=== PATIENT | male | born 1940 | race Caucasian/White ===

== ENCOUNTER 2018-01-31 11:39 | Outpatient (CLI) | payer MEDICARE, BC ==
[2018-01-31 13:12] LABS: #Eosinphils 0.1 thou/uL (0.0-0.7); #Lymphocytes 1.8 thou/uL (1.20-3.40); #Monocytes 0.5 thou/uL (0.11-0.59); #Neutrophils 3.8 thou/uL (1.40-6.50); %Basophils 0.4 % (0.0-1.0); %Eosinophils 1.9 % (0.0-10.0); %Lymphocytes 28.5 % (21.0-51.0); %Monocytes 8.7 % (0.0-10.0); %Neutrophils 60.6 % (42.0-75.0); Hemoglobin 11.8 g/dL (14.0-18.0); Mean Corpuscular HGB CONC 34.7 g/dL (32.0-36.0); Mean Corpuscular Hemoglobin 35.3 pg (27.0-31.0); Mean Platelet Volume 9.5 fL (7.4-10.4); Platelet Count 177 thou/uL (130-400); RBC Distribution Width 17.1 % (11.5-14.5); Red Blood Cell (RBC) Count 3.33 mill/uL (4.70-6.10); White Blood Cell (WBC) Count 6.3 thou/uL (4.8-10.8)
[2018-01-31 13:45] LABS: Anion Gap 12 mmol/L (10-20); BUN (Urea Nitrogen) 17 mg/dL (8.4-25.7); Calc. Creatinine Clearance 0 mL/min (70-130); Calcium 9.5 mg/dL (7.8-10.44); Carbon Dioxide 26 mmol/L (23-31); Chloride 106 mmol/L (98-107); Estimated GFR-MDRD 83; Glucose 160 mg/dL (83-110); Potassium 4.4 mmol/L (3.5-5.1); Sodium 140 mmol/L (136-145)
--- NOTE | 2018-01-31 13:59 | RAD ---
2 VIEWS CHEST: Date: 01/31/18 COMPARISON: None. HISTORY: Preoperative radiograph. FINDINGS: Two views of the chest show normal sized cardiomediastinal silhouette. There is no evidence of consol idation, mass, or pleural effusion. Degenerative changes are seen in the spine. IMPRESSION: No evidence of acute cardiopulmonary disease. POS: [facility]
== END 2018-01-31 11:40 | disposition home or self-care (01) ==
LOC: LABBT 11:39
PROVIDERS: ATTEND Orthopaedic Surgery Hand Surgery
DX: Z01.818 Encounter for other preprocedural examination (principal); G56.01 Carpal tunnel syndrome, right upper limb
CPT/HCPCS: 71046; 80048; 85025

== ENCOUNTER 2018-02-02 14:18 | Day surgery (SDC) | payer MEDICARE, BC ==
[2018-01-31 12:09] VITALS: BMI 28.2
[2018-02-02] MEDS ORDERED: Bacitracin Zinc Ointment 30 gm TUBE ONE (17:50)
[2018-02-02] MEDS ORDERED: Betamet Acet/Betamet Na Ph 30 MG/5 ML VIAL ONE (17:50)
[2018-02-02] MEDS ORDERED: Bupivacaine PF 0.5% 30 ML VIAL ONE (17:50)
[2018-02-02] MEDS ORDERED: CEFAZOLIN/Water 2 GM/20 ML SYRINGE ONE (17:56)
[2018-02-02] MEDS ORDERED: Fentanyl 100 MCG/2 ML VIAL ONE (17:58)
--- NOTE | 2018-02-04 14:46 | OP ---
DATE OF PROCEDURE: 02/02/2018. PREOPERATIVE DIAGNOSIS: Right carpal tunnel syndrome. POSTOPERATIVE DIAGNOSES: Right carpal tunnel syndrome with 5 mm stippling and moderate median nerve compression with early flattening proximal and third of the carpal tunnel on the transverse carpal li gament. INDICATIONS: Failed conservative treatment. Very tight transcarpal ligament was found. DESCRIPTION OF PROCEDURE: After successful general LMA technique, limb was prepped and draped. The patient then had the time out done appropriately. The limb was exsanguinated, tourniquet inflated to 250 mmHg pressure beyond the line of incision in line with the center portion of the ring fingers as far as medial, lateral, and distal to proximal lateral was approximately 5 mm distal volar wri st flexion crease. After inflation tourniquet, exsanguination of limb, the patient had the incision entered with a sharp skin knife and [place] blade to dissect down to the transcarpal ligament. We cou ld see the ligament as well with slight flexion and this helps to perform . We then released th e tight band as visualized, irrigated the wound, obtained hemostasis and deflating the tourniquet and then closed the incision with interrupted 4-0 nylon mattress pattern. The patient left the operatin g room without evidence of anesthetic or operative complication.
== END 2018-02-02 20:14 | disposition home or self-care (01) ==
LOC: SDC 14:18
PROVIDERS: ATTEND Orthopaedic Surgery Hand Surgery
PROC: 01N50ZZ Release Median Nerve, Open Approach (ICD-10-PCS; principal; 2018-02-02)
DX: G56.01 Carpal tunnel syndrome, right upper limb (principal); Z79.4 Long term (current) use of insulin; Z79.01 Long term (current) use of anticoagulants; Z79.899 Other long term (current) drug therapy; Z88.8 Allergy status to other drugs, medicaments and biological substances; Z91.041 Radiographic dye allergy status
CPT/HCPCS: 36416; J0702; J3010; S0020

== ENCOUNTER 2018-03-21 09:13 | Outpatient (CLI) | payer MEDICARE, BC ==
[2018-03-21 09:56] LABS: ALT (SGPT) 23 U/L (8-55); AST (SGOT) 23 U/L (5-34); Albumin 4.2 g/dL (3.4-4.8); Alkaline Phosphatase 94 U/L (40-150); Anion Gap 11 mmol/L (10-20); BUN (Urea Nitrogen) 17 mg/dL (8.4-25.7); Bilirubin, Total 1.3 mg/dL (0.2-1.2); Calc. Creatinine Clearance 0 mL/min (70-130); Calcium 9.4 mg/dL (7.8-10.44); Carbon Dioxide 27 mmol/L (23-31); Chloride 107 mmol/L (98-107); Estimated GFR-MDRD 57; Globulin 1.9 g/dL (2.4-3.5); Glucose 344 mg/dL (83-110); Potassium 4.7 mmol/L (3.5-5.1); Protein, Total 6.1 g/dL (5.8-8.1); Sodium 140 mmol/L (136-145)
[2018-03-21 09:58] LABS: Band 10 % (5-11); Eosinophils 4 % (0-10); Hemoglobin 11.7 g/dL (14.0-18.0); Lymphocytes 26 % (21-51); MDiff Complete? YES; Mean Corpuscular HGB CONC 35.8 g/dL (32.0-36.0); Mean Corpuscular Hemoglobin 33.5 pg (27.0-31.0); Mean Corpuscular Volume 93.6 fL (78.0-98.0); Mean Platelet Volume 9.1 fL (7.4-10.4); Monocytes 7 % (0-10); Neutrophil 52 % (42-75); PLT Morphology Comment Appears Adequate; Platelet Count 206 thou/uL (130-400); RBC Morphology Normal; Reactive Lymphocytes 1 % (0-10); Red Blood Cell (RBC) Count 3.49 mill/uL (4.70-6.10); White Blood Cell (WBC) Count 6.4 thou/uL (4.8-10.8)
--- NOTE | 2018-03-21 11:13 | RAD ---
PA AND LATERAL CHEST: HISTORY: Cough for the past two to three weeks. COMPARISON: 01/31/2018 FINDINGS: Heart size is within normal limits. There has been placement of a pacemaker since the prior examinat ion. Some minimal linear interstitial change in the left mid lung field, which I think is largely te [place]nique related. No confluent infiltrative process seen. IMPRESSION: No definite acute process. POS: [facility]
--- NOTE | 2018-03-21 11:14 | ULT ---
ULTRASOUND THYROID: Date: 03/21/18 HISTORY: Hyperthyroidism in 77-year-old male. E05.90. COMPARISON: 07/25/16. FINDINGS: Isthmus: 1.2 cm anteroposterior. Right Lobe: 5.3 x 3.4 x 2.2 cm. Left Lobe: 5.9 x 3.8 x 2.6 cm. Thyroid parenchymal echotexture is diffusely mildly heterogeneous. There are at least four small thyroid nodules: 0.4 x 0.5 x 0.4 cm hyperechoic nodule at right mid pole, was present previously. It is either stable or has mildly grown. Although the total TI-RADS points is 6 with a TIRADS level of TR4, this is less than 1 cm, and therefore no follow-up is recommended. 0.3 x 0.3 x 0.3 cm hypoechoic lesion located more medially in the right mid pole, unchanged since the previous ultrasound, probably a tiny cyst. 0.8 x 0.5 x 0.6 cm mixed echogenicity (isoechoic and hypoechoic), wider than tall, with no echogenic foci, smooth choi. Total TI-RADS points 4. TI-RADS level of TR4. This actually looks very similar to a nodule described in the 2016 ultrasound report as being in the lower pole, while the current lesio n is reported to be in the upper-mid pole by the bus info consultant. It may or may not correspond to the janeth e lesion. However, it is less than 1 cm, and therefore no follow-up is recommended. Finally, a 0.2 x 0.2 x 0.3 cm tiny hyperechoic lesion located more medially in the left mid pole. Tot al points 3, TI-RADS level TR3. Less than 1 cm and therefore no follow-up recommended. IMPRESSION: 1. Diffuse thyromegaly. This probably represents Graves' disease. Jennifer thyroiditis can also hav e this appearance, although it is much less common in males. 2. At least four tiny thyroid nodules. No follow-up recommended for these. POS: [facility]
== END 2018-03-21 09:14 | disposition home or self-care (01) ==
LOC: SCSULT 09:13
PROVIDERS: ATTEND Family Medicine
DX: E05.90 Thyrotoxicosis, unspecified without thyrotoxic crisis or storm (principal); R05 Cough; E04.2 Nontoxic multinodular goiter; E01.0 Iodine-deficiency related diffuse (endemic) goiter; R53.83 Other fatigue
CPT/HCPCS: 36415; 71046; 76536; 80053; 85025

== ENCOUNTER 2018-04-20 13:39 | Outpatient (CLI) | payer MEDICARE, BC | END 2018-04-20 13:40 | disposition home or self-care (01) | LOC: BICULT 13:39 | PROVIDERS: ATTEND Internal Medicine Endocrinology, Diabetes & Metabolism | DX: M79.89 Other specified soft tissue disorders (principal); L53.9 Erythematous condition, unspecified; R59.0 Localized enlarged lymph nodes; M79.604 Pain in right leg ==

== ENCOUNTER 2019-01-03 06:32 | Day surgery (SDC) | payer MEDICARE, BC ==
[2019-01-02 15:10] VITALS: BMI 28.2
[2019-01-03 08:27] VITALS: BP 125/76; TEMP 97.6
--- NOTE | 2019-01-03 08:39 | RAD ---
CERVICAL MYELOGRAM: INDICATION: Cervical spondylosis with radiculopathy TECHNIQUE: Informed consent was obtained. Preprocedure sponge hooker images were performed for guidance purposes. Site overlying the right L2-3interlaminar space was marked. The site was prepped and draped in the [facility] sterile fashion. Buffered 1% lidocaine was administered to the overlying subcutaneous tissues. Under fluoroscopic guidance, a 22-gauge spinal needle was guided down into the thecal sac. There was spontaneous return of normal appearing CSF fluid. Following this 12 mL of Isovue 300 M was injected within the thecal sac. There was fluoroscopic visua lization of internal nerve roots confirming intrathecal location of needle placement. Following this, patient was then placed in Trendelenburg position and contrast was seen fluoroscopica lly to migrate to the level of the cervical spine. The inner stylette was replaced within the needle and the needle removed. Pressure was held at the biopsy site until hemostasis was obtained. Th e biopsy site was then cleansed and bandage. The patient tolerated the injection without difficulty. Total fluoroscopic time was 1.8 minutes. Total exposure was 1194.2 mcg/sq m. FINDINGS: There is multilevel spondylosis of the lumbar spine and cervical spine. There are carotid body calcif ications. There is partial visualization of a left-sided pacemaker. Bowel gas pattern is unobstructed. Visualized lungs are clear. Small phleboliths are seen within the lower pelvis. There a re moderate calcifications involving the abdominal aorta. IMPRESSION: Successful cervical myelogram
--- NOTE | 2019-01-03 09:28 | CT ---
CT CERVICAL MYELOGRAM: INDICATIONS: Cervical spondylosis and radiculopathy COMPARISON: None. TECHNIQUE: Multiple CT images were obtained of the lumbar spine following the intrathecal administration of an O mnipaque 300 Msolution. Please see the cervical myelogram for details concerning the injection technique. Axial, coronal, and sagittal reformatted images were constructed from the raw data. FINDINGS: Visualized posterior fossa and paravertebral soft tissues: Visualized posterior fossa, prevertebral s oft tissues, paravertebral soft tissues and lung apices appear within normal limits. There is mild hypertrophy of the thyroid gland. There is partial visualization of a left-sided pacemaker leads. Spinal alignment: Within normal limits. Spinal instrumentation or postsurgical change: None At C2-C3, there is moderate left and mild right facet joint degenerative change. There is mild uncove rtebral hypertrophy. There is no appreciable central canal or neural foraminal narrowing.. At C3-C4, there is severe left and mild right facet joint degenerative change. There is uncovertebral hypertrophy. There is mild left neural foraminal narrowing. There is a broad-based bulge causing mild ventral effacement of the subarachnoid space without definite cord impression. At C4-C5, there is moderate left and mild right facet joint degenerative change. There is a small bro ad-based disc bulge. There is no appreciable central canal or neural foraminal narrowing. At C5-C6, there is uncovertebral hypertrophy and severe left facet joint degenerative change. There i s mild left neural foraminal narrowing. There is a broad-based disc bulge causing mild ventral effacement of the subarachnoid space without cord compression. At C6-C7, there is no appreciable central canal or neuroforaminal narrowing. At C7-T1, there is no appreciable central canal or neuroforaminal narrowing. IMPRESSION: 1. Mild spondylosis of the cervical spine. 2. Mild left neural foraminal narrowing at C3-4 and C5-6.
== END 2019-01-03 10:00 | disposition home or self-care (01) ==
LOC: RAD 06:32 → EDSTATUS 08:00 → RAD 10:00
PROVIDERS: ATTEND Neurological Surgery
PROC: B01B1ZZ Fluoroscopy of Spinal Cord using Low Osmolar Contrast (ICD-10-PCS; principal; 2019-01-03)
DX: M47.22 Other spondylosis with radiculopathy, cervical region (principal); M48.02 Spinal stenosis, cervical region; E11.42 Type 2 diabetes mellitus with diabetic polyneuropathy; K21.9 Gastro-esophageal reflux disease without esophagitis; E05.90 Thyrotoxicosis, unspecified without thyrotoxic crisis or storm; I48.91 Unspecified atrial fibrillation; E78.5 Hyperlipidemia, unspecified; Z79.01 Long term (current) use of anticoagulants; Z79.4 Long term (current) use of insulin; Z79.899 Other long term (current) drug therapy; Z88.8 Allergy status to other drugs, medicaments and biological substances; Z91.041 Radiographic dye allergy status; Z95.0 Presence of cardiac pacemaker
CPT/HCPCS: 62302; 72126

== ENCOUNTER 2022-02-26 13:49 | Inpatient (IN) | payer OTHER, MEDICARE, BC ==
[2022-02-26] MEDS ORDERED: Morphine 4 MG/ML VIAL ONE (15:32)
[2022-02-26 15:35] LABS: #Eosinphils 0.2 thou/uL (0.0-0.7); #Lymphocytes 1.2 thou/uL (1.20-3.40); #Monocytes 0.9 thou/uL (0.11-0.59); #Neutrophils 10.1 thou/uL (1.40-6.50); %Basophils 0.2 % (0.0-1.0); %Eosinophils 1.9 % (0.0-10.0); %Lymphocytes 9.8 % (21.0-51.0); %Monocytes 7.2 % (0.0-10.0); %Neutrophils 80.8 % (42.0-75.0); Hemoglobin 12.6 g/dL (14.0-18.0); Mean Corpuscular HGB CONC 34.9 g/dL (32.0-36.0); Mean Corpuscular Hemoglobin 38.2 pg (27.0-31.0); Mean Platelet Volume 10.1 fL (7.4-10.4); Platelet Count 176 thou/uL (130-400); RBC Distribution Width 18.1 % (11.5-14.5); Red Blood Cell (RBC) Count 3.29 mill/uL (4.70-6.10); White Blood Cell (WBC) Count 12.4 thou/uL (4.8-10.8)
[2022-02-26 15:47] LABS: Anisocytosis SLIGHT = 6-15 cells (100X) (0-5/hpf); MDiff Complete? YES; Macrocytosis MODERATE=16-30 cells (100X) (0-5/hpf); Platelet Morphology Comment Appears Adequate; Polychromasia SLIGHT = 2-3 cells (100X) (0-2/hpf)
[2022-02-26 15:55] LABS: ALT (SGPT) 21 U/L (8-55); AST (SGOT) 27 U/L (5-34); Albumin 4.1 g/dL (3.4-4.8); Alkaline Phosphatase 76 U/L (40-110); Anion Gap 14 mmol/L (10-20); BUN (Urea Nitrogen) 14 mg/dL (8.4-25.7); Bilirubin, Total 1.7 mg/dL (0.2-1.2); Calc. Creatinine Clearance 0 mL/min (70-130); Calcium 9.3 mg/dL (7.8-10.44); Carbon Dioxide 29 mmol/L (23-31); Chloride 103 mmol/L (98-107); Estimated GFR 77; Globulin 2.2 g/dL (2.4-3.5); Glucose 142 mg/dL (83-110); Protein, Total 6.3 g/dL (5.8-8.1); Sodium 142 mmol/L (136-145)
[2022-02-26] MEDS ORDERED: hydrALAZINE 20 MG/ML VIAL SLOW IVP PRN (16:52)
[2022-02-26] MEDS ORDERED: Dextrose 5% in Water 1,000 ML IV PRN (16:52)
[2022-02-26] MEDS ORDERED: Ondansetron PF 4 MG/2 ML Vial IVP PRN (16:52)
[2022-02-26] MEDS ORDERED: Insulin Regular 300 UNITS/3 ML VIAL SC PRN (16:52)
[2022-02-26] MEDS ORDERED: Morphine 2 MG/ML VIAL SLOW IVP PRN ×2 (16:52→19:17)
[2022-02-26] MEDS ORDERED: Dextrose 50% Abboject 50 ML SYRINGE SLOW IVP PRN (16:52)
[2022-02-26] MEDS ORDERED: Ondansetron ODT 4 MG TAB PO PRN (16:52)
[2022-02-26] MEDS ORDERED: Promethazine HCl 25 MG/ML VIAL IM PRN (16:52)
[2022-02-26] MEDS ORDERED: Morphine 4 MG/ML VIAL SLOW IVP PRN (16:52)
[2022-02-26] MEDS ORDERED: traMADol HCl 50 MG TAB PO PRN (17:00)
[2022-02-26] MEDS ORDERED: Cyclobenzaprine 10 MG TAB PO PRN (17:00)
[2022-02-26 17:21] LABS: SARS-CoV-2 NAA Rapid Test Not Detected (NotDetected)
[2022-02-26 17:31] LABS: Bilirubin Negative (Negative); Blood, Urine Negative (Negative); Clarity Clear (Clear); Glucose, Urine (Dipstick) Normal (Negative); Ketone, Urine Negative (Negative); Leukocyte Negative Leu/uL (Negative); Nitrite Negative (Negative); Protein, Urine (Dipstick) Negative (Neg-Trace); Specific Gravity, Urine 1.016 (1.002-1.036)
[2022-02-26] MEDS ORDERED: Famotidine 20 MG TAB PO SCH (21:00)
[2022-02-26] MEDS: Senokot S 8.6-50 MG TAB PO SCH (21:29)
[2022-02-26] MEDS: Ketorolac Tromethamine 30 MG/ML VIAL IVP SCH ×2 (21:33→23:02)
[2022-02-26] MEDS: traMADol HCl 50 MG TAB PO SCH ×2 (21:33→23:02)
[2022-02-26] MEDS: Acetaminophen 500 MG TAB PO SCH ×2 (21:33→23:01)
[2022-02-26 22:52] VITALS: BMI 28.2
[2022-02-26] MEDS: Cepastat Lozenges 1 LOZ PO PRN (23:02)
[2022-02-26] MEDS ORDERED: Digoxin 0.125 MG TAB PO SCH (23:15)
[2022-02-26] MEDS: Gabapentin 100 MG CAP PO SCH (23:40)
[2022-02-26] MEDS ORDERED: Sodium Chloride 0.9% 1,000 ML IV SCH (23:55)
[2022-02-27 06:05] LABS: #Eosinphils 0.3 thou/uL (0.0-0.7); #Lymphocytes 1.5 thou/uL (1.20-3.40); #Monocytes 0.8 thou/uL (0.11-0.59); #Neutrophils 4.4 thou/uL (1.40-6.50); %Basophils 0.6 % (0.0-1.0); %Eosinophils 4.7 % (0.0-10.0); %Monocytes 11.5 % (0.0-10.0); %Neutrophils 62.2 % (42.0-75.0); Hemoglobin 10.5 g/dL (14.0-18.0); Mean Corpuscular HGB CONC 33.4 g/dL (32.0-36.0); Mean Corpuscular Hemoglobin 37.1 pg (27.0-31.0); Mean Platelet Volume 10.1 fL (7.4-10.4); Platelet Count 132 thou/uL (130-400); RBC Distribution Width 18.2 % (11.5-14.5); Red Blood Cell (RBC) Count 2.82 mill/uL (4.70-6.10)
[2022-02-27] MEDS: Ketorolac Tromethamine 30 MG/ML VIAL IVP SCH ×3 (06:14→18:17)
[2022-02-27] MEDS: Acetaminophen 500 MG TAB PO SCH ×4 (06:14→23:43)
[2022-02-27] MEDS: Levothyroxine 175 MCG TAB PO SCH (06:15)
[2022-02-27] MEDS: Gabapentin 100 MG CAP PO SCH ×3 (06:15→21:24)
[2022-02-27] MEDS: traMADol HCl 50 MG TAB PO SCH ×4 (06:15→23:43)
[2022-02-27 06:23] LABS: Anion Gap 12 mmol/L (10-20); BUN (Urea Nitrogen) 15 mg/dL (8.4-25.7); Calc. Creatinine Clearance 87 mL/min (70-130); Calcium 8.2 mg/dL (7.8-10.44); Carbon Dioxide 28 mmol/L (23-31); Chloride 105 mmol/L (98-107); Estimated GFR 85; Glucose 115 mg/dL (83-110); Magnesium 1.6 mg/dL (1.6-2.6); Potassium 3.9 mmol/L (3.5-5.1); Sodium 141 mmol/L (136-145)
[2022-02-27 06:25] LABS: Phosphorus 3.6 mg/dL (2.3-4.7)
[2022-02-27] MEDS ORDERED: Magnesium 2 GM/50 ML(in water) 2 GM in Premix Bag 1 BAG IVPB SCH (09:00)
[2022-02-27] MEDS: Ascorbic Acid 500 mg Chewable Tablet PO SCH (09:06)
[2022-02-27] MEDS: Dutasteride 0.5 MG CAP PO SCH (09:06)
[2022-02-27] MEDS: Pregabalin 75 MG CAP PO SCH ×3 (09:07→21:23)
[2022-02-27] MEDS: Calcium Carbonate 600 MG + Vit D TAB PO SCH ×2 (09:07→11:58)
[2022-02-27] MEDS: Tamsulosin HCl 0.4 MG CAP PO SCH (09:08)
[2022-02-27] MEDS: Polyethylene Glycol 3350 17 GM Packet PO SCH (09:09)
[2022-02-27] MEDS: Senokot S 8.6-50 MG TAB PO SCH ×2 (09:09→21:23)
[2022-02-27] MEDS: Cepastat Lozenges 1 LOZ PO PRN (09:09)
[2022-02-27] MEDS: Timolol 0.5% Ophth Soln 5 ml Bottle EA EYE SCH ×2 (09:09→21:30)
[2022-02-27] MEDS ORDERED: ceFAZolin 2 GM/Dextrose 50 ML 2 GM in Premix Bag 1 BAG IVPB SCH (09:30)
[2022-02-27] MEDS ORDERED: CEFAZOLIN 2 GM in Sodium Chloride 0.9% 100 ML IVPB SCH (09:45)
[2022-02-27] MEDS: Multivitamin W/ Minerals 1 TAB PO SCH (11:54)
[2022-02-27] MEDS: Insulin Regular 300 UNITS/3 ML VIAL SC PRN (11:56)
[2022-02-27] MEDS ORDERED: Ferrous Sulfate 325 MG TAB PO SCH (17:00)
[2022-02-27] MEDS: Digoxin 0.125 MG TAB PO SCH (21:24)
[2022-02-27] MEDS ORDERED: Sodium Chloride 0.9% 1,000 ML IV SCH (23:55)
[2022-02-28] MEDS: Acetaminophen 500 MG TAB PO SCH ×3 (05:47→18:24)
[2022-02-28] MEDS: traMADol HCl 50 MG TAB PO SCH ×3 (05:47→18:23)
[2022-02-28] MEDS: Levothyroxine 175 MCG TAB PO SCH (05:48)
[2022-02-28] MEDS: Gabapentin 100 MG CAP PO SCH ×3 (05:48→21:41)
[2022-02-28 06:06] LABS: Anion Gap 12 mmol/L (10-20); BUN (Urea Nitrogen) 20 mg/dL (8.4-25.7); Calc. Creatinine Clearance 82 mL/min (70-130); Calcium 8.7 mg/dL (7.8-10.44); Carbon Dioxide 27 mmol/L (23-31); Chloride 106 mmol/L (98-107); Estimated GFR 78; Glucose 157 mg/dL (83-110); Phosphorus 4.4 mg/dL (2.3-4.7); Potassium 4.7 mmol/L (3.5-5.1); Sodium 140 mmol/L (136-145)
[2022-02-28 06:11] LABS: Anisocytosis SLIGHT = 6-15 cells (100X) (0-5/hpf); Band 32 % (5-11); Eosinophils 3 % (0-10); Hemoglobin 10.5 g/dL (14.0-18.0); Lymphocytes 12 % (21-51); MDiff Complete? YES; Mean Corpuscular Hemoglobin 36.8 pg (27.0-31.0); Monocytes 8 % (0-10); Neutrophil 45 % (42-75); Platelet Count 129 thou/uL (130-400); Platelet Morphology Comment Appears Adequate; RBC Distribution Width 17.8 % (11.5-14.5); Red Blood Cell (RBC) Count 2.85 mill/uL (4.70-6.10); White Blood Cell (WBC) Count 8.5 thou/uL (4.8-10.8)
[2022-02-28] MEDS: Tamsulosin HCl 0.4 MG CAP PO SCH (09:15)
[2022-02-28] MEDS: Pregabalin 75 MG CAP PO SCH ×3 (09:16→21:42)
[2022-02-28] MEDS: Dutasteride 0.5 MG CAP PO SCH (09:16)
[2022-02-28] MEDS: Timolol 0.5% Ophth Soln 5 ml Bottle EA EYE SCH ×2 (09:19→22:26)
[2022-02-28] MEDS ORDERED: Sodium Chloride 0.9% 100 ML ONE (11:49)
[2022-02-28] MEDS ORDERED: CEFAZOLIN 2 GM VIAL ONE (11:49)
[2022-02-28] MEDS ORDERED: PROPOFOL 200 MG/20 ML VIAL ONE (12:19)
[2022-02-28] MEDS ORDERED: Lidocaine 1% PF 5 ML VIAL ONE (12:19)
[2022-02-28] MEDS ORDERED: Glycopyrrolate 0.2 MG/ML 5 ML SYRINGE ONE (12:19)
[2022-02-28] MEDS ORDERED: Rocuronium Bromide 10 MG/ML (10ML VIAL) ONE (12:19)
[2022-02-28] MEDS ORDERED: Promethazine HCl 25 MG/ML VIAL IVPB PRN (13:30)
[2022-02-28] MEDS ORDERED: Ondansetron HCl/PF 4 MG/2 ML Vial IVP PRN (13:30)
[2022-02-28] MEDS ORDERED: Promethazine HCl 25 MG/ML VIAL IM PRN (13:30)
[2022-02-28] MEDS ORDERED: Fentanyl 100 MCG/2 ML VIAL ONE (13:34)
[2022-02-28] MEDS: Calcium Carbonate 600 MG + Vit D TAB PO SCH ×2 (14:57→15:10)
[2022-02-28] MEDS: Ascorbic Acid 500 mg Chewable Tablet PO SCH (14:57)
[2022-02-28] MEDS: Ferrous Sulfate 325 MG TAB PO SCH (14:58)
[2022-02-28] MEDS: Polyethylene Glycol 3350 17 GM Packet PO SCH (14:58)
[2022-02-28] MEDS: Senokot S 8.6-50 MG TAB PO SCH ×2 (14:59→21:41)
[2022-02-28] MEDS: Multivitamin W/ Minerals 1 TAB PO SCH (15:27)
[2022-02-28] MEDS: Digoxin 0.125 MG TAB PO SCH (21:42)
[2022-02-28 22:18] LABS: Bacteria/HPF None Seen HPF (None Seen); Bilirubin Negative (Negative); Blood, Urine Negative (Negative); Clarity Clear (Clear); Glucose, Urine (Dipstick) Normal (Negative); Ketone, Urine Trace mg/dL (Negative); Leukocyte Negative Leu/uL (Negative); Nitrite Negative (Negative); Protein, Urine (Dipstick) Negative (Neg-Trace); RBC/HPF 0-3 HPF (0-3); Specific Gravity, Urine 1.011 (1.002-1.036); Squamous Epithelial 0-3 HPF (0-3); Urobilinogen Normal mg/dL (Less than 2); WBC/HPF None Seen HPF (0-3)
[2022-02-28 22:19] LABS: Urine Culture Reflex No No
[2022-03-01] MEDS: Acetaminophen 500 MG TAB PO SCH ×4 (00:03→17:44)
[2022-03-01] MEDS: traMADol HCl 50 MG TAB PO SCH ×4 (00:04→17:46)
[2022-03-01] MEDS: Levothyroxine 175 MCG TAB PO SCH (05:14)
[2022-03-01] MEDS: Gabapentin 100 MG CAP PO SCH (05:14)
[2022-03-01 05:46] LABS: #Eosinphils 0.3 thou/uL (0.0-0.7); #Lymphocytes 1.3 thou/uL (1.20-3.40); #Neutrophils 6.1 thou/uL (1.40-6.50); %Basophils 0.4 % (0.0-1.0); %Lymphocytes 15.1 % (21.0-51.0); %Monocytes 11.5 % (0.0-10.0); Hemoglobin 9.1 g/dL (14.0-18.0); Mean Corpuscular HGB CONC 32.4 g/dL (32.0-36.0); Mean Corpuscular Hemoglobin 36.7 pg (27.0-31.0); Mean Platelet Volume 9.9 fL (7.4-10.4); Platelet Count 144 thou/uL (130-400); RBC Distribution Width 18.4 % (11.5-14.5); Red Blood Cell (RBC) Count 2.49 mill/uL (4.70-6.10); White Blood Cell (WBC) Count 8.7 thou/uL (4.8-10.8)
[2022-03-01 07:26] LABS: Anion Gap 11 mmol/L (10-20); BUN (Urea Nitrogen) 16 mg/dL (8.4-25.7); Calc. Creatinine Clearance 83 mL/min (70-130); Calcium 8.7 mg/dL (7.8-10.44); Carbon Dioxide 30 mmol/L (23-31); Chloride 104 mmol/L (98-107); Estimated GFR 79; Glucose 149 mg/dL (83-110); Magnesium 1.8 mg/dL (1.6-2.6); Phosphorus 3.5 mg/dL (2.3-4.7); Potassium 5.3 mmol/L (3.5-5.1); Sodium 140 mmol/L (136-145)
[2022-03-01] MEDS ORDERED: Sodium Chloride 0.9% 500 ML IV SCH (07:45)
[2022-03-01] MEDS ORDERED: Ibuprofen 200 MG TAB PO PRN (11:00)
[2022-03-01] MEDS: Calcium Carbonate 600 MG + Vit D TAB PO SCH ×2 (11:12→17:45)
[2022-03-01] MEDS: Dutasteride 0.5 MG CAP PO SCH (11:12)
[2022-03-01] MEDS: Senokot S 8.6-50 MG TAB PO SCH ×2 (11:12→21:49)
[2022-03-01] MEDS: Ferrous Sulfate 325 MG TAB PO SCH (11:12)
[2022-03-01] MEDS: Ascorbic Acid 500 mg Chewable Tablet PO SCH (11:13)
[2022-03-01] MEDS: Pregabalin 75 MG CAP PO SCH ×3 (11:13→21:44)
[2022-03-01] MEDS: Polyethylene Glycol 3350 17 GM Packet PO SCH (11:14)
[2022-03-01] MEDS: Tamsulosin HCl 0.4 MG CAP PO SCH (11:14)
[2022-03-01] MEDS ORDERED: Magnesium 2 GM/50 ML(in water) 2 GM in Premix Bag 1 BAG IVPB SCH (15:00)
[2022-03-01 15:27] LABS: Anion Gap 13 mmol/L (10-20); BUN (Urea Nitrogen) 15 mg/dL (8.4-25.7); Calc. Creatinine Clearance 78 mL/min (70-130); Calcium 8.7 mg/dL (7.8-10.44); Carbon Dioxide 26 mmol/L (23-31); Chloride 100 mmol/L (98-107); Estimated GFR 74; Glucose 200 mg/dL (83-110); Potassium 4.1 mmol/L (3.5-5.1); Sodium 135 mmol/L (136-145)
[2022-03-01] MEDS: Timolol 0.5% Ophth Soln 5 ml Bottle EA EYE SCH (17:42)
[2022-03-01] MEDS: Multivitamin W/ Minerals 1 TAB PO SCH (17:45)
[2022-03-01] MEDS: Rivaroxaban 10 MG TAB PO SCH (17:47)
[2022-03-01] MEDS: Atorvastatin Calcium 10 MG TAB PO SCH (21:44)
[2022-03-01] MEDS: Digoxin 0.125 MG TAB PO SCH (21:45)
[2022-03-01] MEDS: Loratadine 10 MG TAB PO SCH (21:49)
[2022-03-02] MEDS: traMADol HCl 50 MG TAB PO SCH ×4 (00:25→18:21)
[2022-03-02] MEDS: Acetaminophen 500 MG TAB PO SCH ×4 (00:25→18:20)
[2022-03-02] MEDS: Timolol 0.5% Ophth Soln 5 ml Bottle EA EYE SCH ×3 (06:37→22:07)
[2022-03-02 06:51] LABS: Anion Gap 14 mmol/L (10-20); BUN (Urea Nitrogen) 11 mg/dL (8.4-25.7); Calc. Creatinine Clearance 95 mL/min (70-130); Calcium 8.7 mg/dL (7.8-10.44); Carbon Dioxide 27 mmol/L (23-31); Chloride 100 mmol/L (98-107); Estimated GFR 88; Glucose 176 mg/dL (83-110); Magnesium 1.7 mg/dL (1.6-2.6); Phosphorus 2.8 mg/dL (2.3-4.7); Potassium 4.1 mmol/L (3.5-5.1); Sodium 137 mmol/L (136-145)
[2022-03-02] MEDS: Levothyroxine 175 MCG TAB PO SCH (06:54)
[2022-03-02 07:09] LABS: #Eosinphils 0.2 thou/uL (0.0-0.7); #Monocytes 0.9 thou/uL (0.11-0.59); #Neutrophils 5.5 thou/uL (1.40-6.50); %Basophils 0.4 % (0.0-1.0); %Eosinophils 2.8 % (0.0-10.0); %Lymphocytes 13.2 % (21.0-51.0); %Monocytes 11.7 % (0.0-10.0); %Neutrophils 71.9 % (42.0-75.0); Hemoglobin 9.1 g/dL (14.0-18.0); Mean Corpuscular HGB CONC 32.9 g/dL (32.0-36.0); Mean Corpuscular Hemoglobin 36.2 pg (27.0-31.0); Mean Platelet Volume 10.1 fL (7.4-10.4); Platelet Count 185 thou/uL (130-400); RBC Distribution Width 18.3 % (11.5-14.5); Red Blood Cell (RBC) Count 2.51 mill/uL (4.70-6.10); White Blood Cell (WBC) Count 7.6 thou/uL (4.8-10.8)
[2022-03-02] MEDS: Pregabalin 75 MG CAP PO SCH ×3 (10:03→22:07)
[2022-03-02] MEDS: Senokot S 8.6-50 MG TAB PO SCH ×2 (10:03→22:07)
[2022-03-02] MEDS: Calcium Carbonate 600 MG + Vit D TAB PO SCH ×2 (10:03→11:39)
[2022-03-02] MEDS: Ascorbic Acid 500 mg Chewable Tablet PO SCH (10:03)
[2022-03-02] MEDS: Docusate 100 MG CAP PO SCH (10:03)
[2022-03-02] MEDS: Polyethylene Glycol 3350 17 GM Packet PO SCH (10:04)
[2022-03-02] MEDS: Tamsulosin HCl 0.4 MG CAP PO SCH (10:04)
[2022-03-02] MEDS: Dutasteride 0.5 MG CAP PO SCH (10:04)
[2022-03-02] MEDS: Ferrous Sulfate 325 MG TAB PO SCH (10:04)
[2022-03-02] MEDS: Multivitamin W/ Minerals 1 TAB PO SCH (12:56)
[2022-03-02] MEDS: Rivaroxaban 10 MG TAB PO SCH (18:20)
[2022-03-02] MEDS: Digoxin 0.125 MG TAB PO SCH (22:06)
[2022-03-02] MEDS: Atorvastatin Calcium 10 MG TAB PO SCH (22:07)
[2022-03-02] MEDS: Loratadine 10 MG TAB PO SCH (22:07)
[2022-03-03] MEDS: Acetaminophen 500 MG TAB PO SCH ×4 (00:22→18:14)
[2022-03-03] MEDS: traMADol HCl 50 MG TAB PO SCH ×4 (00:23→18:15)
[2022-03-03] MEDS: Levothyroxine 175 MCG TAB PO SCH (05:16)
[2022-03-03] MEDS: Insulin Regular 300 UNITS/3 ML VIAL SC PRN ×2 (06:20→13:25)
[2022-03-03] MEDS: Polyethylene Glycol 3350 17 GM Packet PO SCH (08:47)
[2022-03-03] MEDS: Dutasteride 0.5 MG CAP PO SCH (08:47)
[2022-03-03] MEDS: Docusate 100 MG CAP PO SCH (08:47)
[2022-03-03] MEDS: Tamsulosin HCl 0.4 MG CAP PO SCH (08:47)
[2022-03-03] MEDS: Ferrous Sulfate 325 MG TAB PO SCH (08:47)
[2022-03-03] MEDS: Senokot S 8.6-50 MG TAB PO SCH (08:47)
[2022-03-03] MEDS: Timolol 0.5% Ophth Soln 5 ml Bottle EA EYE SCH (08:48)
[2022-03-03] MEDS: Calcium Carbonate 600 MG + Vit D TAB PO SCH ×2 (08:48→13:18)
[2022-03-03] MEDS: Ascorbic Acid 500 mg Chewable Tablet PO SCH (08:48)
[2022-03-03] MEDS: Pregabalin 75 MG CAP PO SCH ×2 (08:48→16:54)
[2022-03-03] MEDS: Multivitamin W/ Minerals 1 TAB PO SCH (13:18)
[2022-03-03] MEDS: Rivaroxaban 10 MG TAB PO SCH (16:56)
[2022-03-03 17:13] VITALS: BP 122/68; TEMP 97.6
== END 2022-03-03 18:54 | disposition home or self-care (01) | DRG 482 ==
LOC: ERS 13:49 → SURG B 16:52
PROVIDERS: ADMIT Student in an Organized Health Care Education/Training Program; ATTEND Surgery
PROC: 0QH636Z Insertion of Intramedullary Internal Fixation Device into Right Upper Femur, Percutaneous Approach (ICD-10-PCS; principal; 2022-02-28)
DX: S72.141A Displaced intertrochanteric fracture of right femur, initial encounter for closed fracture (principal); Z20.822 Contact with and (suspected) exposure to COVID-19; W01.0XXA Fall on same level from slipping, tripping and stumbling without subsequent striking against object, initial encounter; Z96.612 Presence of left artificial shoulder joint; I48.91 Unspecified atrial fibrillation; E03.9 Hypothyroidism, unspecified; Z96.653 Presence of artificial knee joint, bilateral; K21.9 Gastro-esophageal reflux disease without esophagitis; E78.00 Pure hypercholesterolemia, unspecified; N40.0 Benign prostatic hyperplasia without lower urinary tract symptoms; E11.51 Type 2 diabetes mellitus with diabetic peripheral angiopathy without gangrene; Z90.49 Acquired absence of other specified parts of digestive tract; Z95.0 Presence of cardiac pacemaker; Z87.891 Personal history of nicotine dependence; Z91.041 Radiographic dye allergy status; Z88.8 Allergy status to other drugs, medicaments and biological substances; Z79.02 Long term (current) use of antithrombotics/antiplatelets; Z79.01 Long term (current) use of anticoagulants; Z79.899 Other long term (current) drug therapy; Z79.890 Hormone replacement therapy; Z79.4 Long term (current) use of insulin; E87.5 Hyperkalemia; R33.9 Retention of urine, unspecified
CPT/HCPCS: 36415; 36416; 71045; 72170; 76000; 80048; 80053; 81001; 81003; 83735; 84100; 85025; 93005; 96374; C1713; G0390; J0690; J1815; J1885; J2270; J2704; J2710; J3010; J3475; J3490; J7030; J7050; U0002

== ENCOUNTER 2022-04-13 13:11 | Outpatient (CLI) | payer MEDICARE, BC | END 2022-04-13 13:12 | disposition home or self-care (01) | LOC: SCSRAD 13:11 | PROVIDERS: ATTEND Internal Medicine Endocrinology, Diabetes & Metabolism | DX: M25.562 Pain in left knee (principal); R29.898 Other symptoms and signs involving the musculoskeletal system ==